=== PATIENT | male | born 1995 | race Hispanic/Latino ===

== ENCOUNTER 2018-05-28 22:26 | Observation (INO) | payer MEDICAID, OTHER ==
[2018-05-28 23:35] VITALS: BMI 24.3
[2018-05-28 23:42] VITALS: RESP 18
[2018-05-29] MEDS ORDERED: Amoxicillin-Clav 875-125 mg Tab PO STA (00:38)
[2018-05-29] MEDS ORDERED: TDAP Vaccine 0.5 mL Syr IM ONE (00:38)
[2018-05-29 01:27] LABS: BASO # 0.02 K/mm3 (0.0-2.0); BASO % 0.2 % (0.0-3.0); EOS % 0.3 % (1.5-5.0); GRAN # 7.49 (1.4-6.5); GRAN % 74.9 % (50.0-68.0); HEMOGLOBIN 13.7 g/dL (14.0-18.0); LYMPH # 1.9 (1.2-3.4); LYMPH % 19.1 % (22.0-35.0); MEAN CELL VOLUME 83.1 fl (80.0-105.0); MEAN CORPUSCULAR HEMOGLOBIN 27.8 pg (25.0-35.0); MEAN CORPUSCULAR HGB CONC 33.5 g/dl (31.0-37.0); MEAN PLATELET VOLUME 9.6 fl (7.0-11.0); MONO # 0.6 (0.1-0.6); MONO % 5.5 % (1.0-6.0); RBC 4.92 10^6/uL (3.5-6.1); RED CELL DISTRIBUTION WIDTH 12.1 % (11.5-14.5)
[2018-05-29 02:11] LABS: ALB/GLOB RATIO 1.7 (1.1-1.8); ALBUMIN 4.8 g/dL (3.0-4.8); ALT/SGPT 33 U/L (7-56); AST/SGOT 44 U/L (17-59); BLOOD UREA NITROGEN 19 mg/dL (7-21); CALCIUM 9.6 mg/dL (8.4-10.5); GFR NON-AFRICAN AMERICAN > 60
[2018-05-29 02:22] LABS: TROPONIN I < 0.01 ng/mL
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
[2018-05-29] MEDS ORDERED: Lidocaine 1% 5ml Abboject ONE (02:32)
[2018-05-29 02:33] LABS: CK-MB 1.5 ng/mL (0.0-3.6)
[2018-05-29 03:12] LABS: URINE BILIRUBIN NEGATIVE (NEGATIVE); URINE BLOOD NEGATIVE (NEGATIVE); URINE GLUCOSE (UA) NEGATIVE (NEGATIVE); URINE LEUKOCYTE ESTERASE NEGATIVE Leu/uL (NEGATIVE); URINE PROTEIN TRACE mg/dL (<30 mg/dL)
[2018-05-29 03:19] LABS: URINE APPEARANCE CLEAR (CLEAR); URINE COLOR YELLOW (YELLOW)
[2018-05-29 03:25] LABS: URINE EPITHELIAL CELLS 0 - 2 /hpf (0-5); URINE RBC 0 - 2 /hpf (0-2); URINE WBC 0 - 2 /hpf (0-6)
[2018-05-29 03:26] LABS: URINE AMORPHOUS SEDIMENT FEW
[2018-05-29 03:27] LABS: BARBITURATES, UR NEGATIVE (NEGATIVE); BENZODIAZEPINES, UR NEGATIVE (NEGATIVE); OPIATES, UR NEGATIVE (NEGATIVE); PHENCYCLIDINE, UR NEGATIVE (NEGATIVE)
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
[2018-05-29 05:53] LABS: INR 1.08; PARTIAL THROMBOPLASTIN TIME 32.1 Seconds (25.1-36.5); PROTHROMBIN TIME 12.4 SECONDS (9.4-12.5)
[2018-05-29] MEDS ORDERED: Potassium Chloride 20 mEq ER Tab PO STA (06:45)
[2018-05-29 08:16] VITALS: BP 130/80; PULSE 63; TEMP 8.2; O2SAT 98
--- NOTE | 2018-05-29 08:26 | CT ---
Date of service: 05/29/2018 PROCEDURE: CT HEAD WITHOUT CONTRAST. HISTORY: head injury/ syncope COMPARISON: None available. TECHNIQUE: Axial computed tomography images were obtained through the head/brain without intravenous contrast. Radiation dose: Total exam DLP = 869.54 mGy-cm. This CT exam was performed using one or more of the following dose reduction techniques: Automated exposure control, adjustment of the mA and/or kV according to patient size, and/or use of iterative reconstruction technique. FINDINGS: HEMORRHAGE: No intracranial hemorrhage. BRAIN: Moderate right frontal, mild left frontal atrophy, and focal atrophy or encephalomalacia the posterior vertex; appears chronic. No mass effect or edema. The quintana-white matter differentiation appears intact. Please note that MRI with diffusion imaging is more sensitive in the detection of acute ischemic event. VENTRICLES: No hydrocephalus. CALVARIUM: Unremarkable. PARANASAL SINUSES: Unremarkable as visualized. No significant inflammatory changes. MASTOID AIR CELLS: Unremarkable as visualized. No inflammatory changes. OTHER FINDINGS: None. IMPRESSION: No acute intracranial pathology identified. Moderate right frontal, mild left frontal atrophy, and focal atrophy or encephalomalacia the posterior vertex; appears chronic. Correlate for prior trauma. Preliminary impression was provided by [email or web address].
--- NOTE | 2018-05-29 09:26 | RAD ---
HISTORY: syncope COMPARISON: No prior. TECHNIQUE: Chest, one view. FINDINGS: LUNGS: No focal consolidation. Please note that chest x-ray has limited sensitivity for the detection of pulmonary masses. PLEURA: No significant pleural effusion identified. No definite pneumothorax . CARDIOVASCULAR: The cardiomediastinal silhouette appears within normal limits of size. No significant atherosclerotic calcification identified. OSSEOUS STRUCTURES: No acute osseous abnormality identified. VISUALIZED UPPER ABDOMEN: Unremarkable. OTHER FINDINGS: None. IMPRESSION: No focal consolidation, significant pleural effusion, or definite pneumothorax identified.
--- NOTE | 2018-05-29 09:47 | CARD ---
APPROVED REPORT Date of service: 05/29/2018 EKG Measurement Heart [id number] <Conclusion> Normal sinus rhythm with sinus arrhythmia Normal Electrocardiogram
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
[2018-05-29] MEDS ORDERED: Gadodiamide 287 MG/ML VIAL (15ML) IV ONE (14:16)
--- NOTE | 2018-05-29 14:54 | MRI ---
Date of service: 05/29/2018 PROCEDURE: MRI BRAIN WITH AND WITHOUT CONTRAST HISTORY: hygroma? COMPARISON: None available. TECHNIQUE: Multiplanar, multisequence MR images of the brain were obtained with and without intravenous contrast enhancement. 15 cc of Omniscan FINDINGS: HEMORRHAGE: None DWI: No evidence of an acute or early subacute infarction. BRAIN PARENCHYMA: There is a well-defined arachnoid cyst over the right frontal convexity measuring 58 mm AP x 27 mm height and 28 mm wide. 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 There is no enhancement the brain parenchyma is normal. The ventricles and sulci are normal in size. ENHANCEMENT: No abnormal intracranial enhancement. VENTRICLES: Unremarkable. No hydrocephalus. CRANIUM: Unremarkable. ORBITS: Grossly unremarkable. PARANASAL SINUSES/MASTOIDS: Clear VASCULAR SYSTEM: Skull base flow voids intact. OTHER FINDINGS: None . IMPRESSION: There is a well-defined arachnoid cyst over the right frontal convexity measuring 58 mm AP x 27 mm height and 28 mm wide. 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 There is no enhancement
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
== END 2018-05-29 19:24 | disposition home or self-care (01) ==
LOC: ED 22:26 → ERH 05-29 03:36 → 5RNO 05-29 05:45
PROVIDERS: ADMIT Internal Medicine; ATTEND Internal Medicine
DX: R55 Syncope and collapse (principal); S01.511A Laceration without foreign body of lip, initial encounter; S02.5XXA Fracture of tooth (traumatic), initial encounter for closed fracture; G93.0 Cerebral cysts; G31.9 Degenerative disease of nervous system, unspecified; R09.01 Asphyxia; R40.2412 Glasgow coma scale score 13-15, at arrival to emergency department; Z23 Encounter for immunization
CPT/HCPCS: 12011; 70450; 70486; 70553; 71045; 80053; 81001; 82550; 82553; 83615; 84484; 85025; 85610; 85730; 86592; 86695; 86696; 87389; 90471; 90715; 93005; 97161; 99285; A9579; G0378; G0480; G8978; G8979; G8980

== ENCOUNTER 2018-06-05 17:12 | Emergency (ER) | payer MEDICAID, OTHER ==
[2018-06-05 17:30] VITALS: BP 140/90; PULSE 84; RESP 18; TEMP 98.1; O2SAT 100; BMI 24.3
--- NOTE | 2018-06-05 17:36 | ED PDOC ---
Arrival/HPI - General Chief Complaint: Suture/Staple Removal Time Seen by Provider: 06/05/18 17:23 Historian: Patient - History of Present Illness Narrative History of Present Illness (Text): 06/05/18 17:33 22-year-old male presents to the emergency room for suture removal of sutures applied to the lower lip 8 days ago. Otherwise he reports no pain, numbness, redness, swelling, discharge. PMD Adelina Past Medical History - Tetanus Immunization Tetanus Immunization: Unknown - Cardiac Hx Cardiac Disorders: No - Pulmonary Hx Respiratory Disorders: No - Neurological Hx Neurological Disorder: No - HEENT Hx HEENT Disorder: No - Renal Hx Renal Disorder: No - Endocrine/Metabolic Hx Endocrine Disorders: No - Hematological/Oncological Hx Blood Disorders: No - Integumentary Hx Dermatological Disorder: No - Musculoskeletal/Rheumatological Hx Musculoskeletal Disorders: No Hx Falls: No - Gastrointestinal Hx Gastrointestinal Disorders: No - Genitourinary/Gynecological Hx Genitourinary Disorders: No - Psychiatric Hx Psychophysiologic Disorder: No Hx Substance Use: No - Anesthesia Hx Anesthesia: No Hx Anesthesia Reactions: No Hx Malignant Hyperthermia: No Family/Social History Family/Social History: No Known Family HX Smoking Status: Never Smoked Hx Alcohol Use: No Hx Substance Use: No Allergies/Home Meds Allergies/Adverse Reactions: Allergies No Known Allergies Allergy (Verified 06/05/18 17:31) Review of Systems - Review of Systems Constitutional: absent: Fatigue, Fevers Skin: Laceration. absent: Rash, Pruritis, Skin Lesions Physical Exam Vital Signs Temp Pulse Resp BP Pulse Ox 06/05/18 17:29 98.1 F 84 18 140/90 100 Temperature: Afebrile Blood Pressure: Normal Pulse: Regular Respiratory Rate: Normal Appearance: Positive for: Well-Appearing, Non-Toxic, Comfortable Pain Distress: None Mental Status: Positive for: Alert and Oriented X 3 - Systems Exam Head: Present: Atraumatic, Normocephalic Pupils: Present: PERRL Extroacular Muscles: Present: EOMI Conjunctiva: Present: Normal Mouth: Present: Moist Mucous Membranes, Normal Lips, Other (+healed laceration to the lower lip with 5 sutures, without tenderness, erythema, edema or d/c. ) Neck: Present: Normal Range of Motion. No: MIDLINE TENDERNESS, Lymphadenopathy Neurological: Present: GCS=15, CN II-XII Intact, Speech Normal Skin: Present: Warm, Dry, Normal Color. No: Rashes Psychiatric: Present: Alert, Oriented x 3, Normal Insight, Normal Concentration Medical Decision Making ED Course and Treatment: 06/05/18 17:35 Sutures removed easily by PA. Patient is stable to d/c. - PA / [employer] / Resident Statement MD/DO has reviewed & agrees with the documentation as recorded. Disposition/Present on Arrival - Present on Arrival Any Indicators Present on Arrival: No History of DVT/PE: No History of Uncontrolled Diabetes: No Urinary Catheter: No History of Decub. Ulcer: No History Surgical Site Infection Following: None - Disposition Have Diagnosis and Disposition been Completed?: Yes Diagnosis: Visit for wound check, Visit for suture removal Disposition: HOME/ ROUTINE Disposition Time: 17:30 Patient Plan: Discharge Condition: STABLE Discharge Instructions (ExitCare): Stitches Removal, Wound Care (DC) Additional Instructions: Thank you for letting us take care of you today. You were treated for wound check, suture removal. The emergency medical care you received today was directed at your acute symptoms. It may take several days for your symptoms to resolve. Return to the Emergency Department if your symptoms worsen, do not improve, or if you have any other problems. Please contact your doctor in 2 days for re-evaluation and follow up. Bring any paperwork you were given at discharge with you along with any medications you are taking to your follow up visit. Our treatment cannot replace ongoing medical care by a primary care provider (PCP) outside of the emergency department. Thank you for allowing the [facility] team to be part of your care today. Forms: [employer] ([place]), WORK NOTE
== END 2018-06-05 17:50 | disposition home or self-care (01) ==
LOC: ED 17:12
DX: Z48.02 Encounter for removal of sutures (principal)

== ENCOUNTER 2018-12-25 10:13 | Outpatient (CLI) | payer MEDICAID | END 2018-12-25 10:14 | disposition home or self-care (01) | LOC: RAD 10:13 ==